=== PATIENT | male | born 1950 | race Hispanic/Latino ===

== ENCOUNTER 2016-11-09 11:05 | Day surgery (SDC) | payer MEDICARE ==
[~2016-11-09] VITALS: Ht 162.6 cm; Wt 72.0 kg
[~2016-11-09 11:05] MED LIST: 0.9% Sodium Chloride 1,000 ML IV PRN; AZIT500T5 PO; BENZ-12 PO; LIP40 PO; LISI-567 PO; METF500T4 PO; NPR500T PO; OMEP20CA11 PO; Sodium Chloride LOK Flush 10 mL Syringe IV PRN; fentaNYL-PF 50 mCg/mL 2 mL Inj IVPUSH PRN
[2016-11-09 12:00] VITALS: BP 137/81; PULSE 59; RESP 16; O2SAT 97
[2016-11-09 13:37] VITALS: BP 122/70; PULSE 69; RESP 14; O2SAT 95
--- NOTE | 2016-11-09 13:39 | PCM.ENDEGD ---
EGD Date of Service: November 09, 2016 Physician Keith Trinh MD Pre Procedure Diagnosis: Reflux Post Procedure Dx & Findings: Benign esophageal stricture diffuse gastritis Procedure Esophagogastroduodenoscopy PROCEDURE IN DETAIL: After proper sedation, Olympus video endoscope was inserted into patient's mouth and esophagus was successfully intubated. Scope introduced esophagus. Esophagus showed normal shiny whitish mucosa consistent with squamous cell component. Near the GE junction, there was a scarring consistent with benign esophageal stricture. The lumen was about 11 or 12 mm. We took a balloon dilator to 12 mm. We waited 30 seconds. No tear noted. We took the balloon and dilated to 13.5 mm. We waited 30 seconds. No tear noted. We then dilated up to 15 mm. We waited 30 seconds. Small tear noted. Blood noted. But bleeding stopped. Scope further advanced to the stomach. Stomach showed redness atrophy and mild edema consistent with diffuse gastritis of the entire stomach. Biopsies obtained both proximal and distal stomach. Cardia fundus body antrum pylorus were all visualized. Retroflexion was done. Stomach was easily inflated and deflatable using air. Scope further events to the distal duodenum. Duodenum revealed normal villous structures with normal appearing folds without any mass ulcer erosion. Impression Successful dilation of the esophagus to 15 mm. Diffuse gastropathy Recommendation Repeat EGD in 8 weeks to evaluate for Barclay's esophagus. It is unclear whether patient had Barclay's esophagus or not under the circumstances. Increase Prilosec to 20 mg twice a day. Presedation Assessment Risks and Benefits Informed consent was obtained from the patient after all risks and benefits including but not limited to drug reaction, infection, pain, bleeding, perforation, as well as alternatives were discussed. Patient monitoring Continuous pulse oximetry, cardiac monitoring, blood pressure monitoring, IV access, and oxygen at 2L per nasal cannula. Periprocedural Fentanyl: Fentanyl 100mcg Incrementally Midazolam: Midazolam 5mg Incrementally Complications There were no periprocedural complications identified. Post Procedure Plan Post Procedure Recommendations 1. Restrict activities today. 2. Resume normal activities in the morning. 3. Resume medications. 4. GERD behavioral modification: - Avoid fatty, acidic, spicy, large meals - Do not lie down after meals - Do not eat or drink anything for at least 2 1/2 hours before going to bed at night - Discontinue tobacco and alcohol - Decrease or avoid caffeine - Avoid chocolate and mints - Decrease weight - Avoid aspirin and non steroidal anti-inflammatory agents (NSAID) such as Aleve, Advil, Mobic, Naproxen, Ibuprofen, etc 5. Add proton pump inhibitor. Take 30 minutes before 1st meal of the day. 6. Patient informed of normal post procedure side effects as bloating, drowsiness, blood streaking in the stool 7. If gastric biopsy reveal H.pylori, continue with appropriate treatment 8. If small bowel biopsy reveals celiac, continue with appropriate treatment 9. Please don't hesitate to call me with any questions Keith Trinh MD November 09, 2016 13:39
[2016-11-09 13:47] VITALS: BP 133/75; PULSE 65; RESP 14; O2SAT 97
--- NOTE | 2016-11-11 11:15 | PATH ---
SURGICAL PATHOLOGY Attending Physician:Keith Trinh M.D. CASE STATUS: Signed Out PATIENT NAME: TRANG VALDEZ PID: [id number] : 1950 DATE COLLECTED:11/09/2016 00:00 SPECIMEN: Gastric, Biopsy CLINICAL HISTORY: 1). GASTRIC BIOPSY FINAL DIAGNOSIS: 1.GASTRIC BIOPSY: ANTRAL AND BODY-TYPE MUCOSA WITH NO DIAGNOSTIC ALTERATIONS. Negative for Helicobacter organisms. Negative for intestinal metaplasia. Negative for dysplasia and malignancy. ICD10 code R10.9 GROSS DESCRIPTION: The specimen is received in one formalin filled container labeled with the patient's name, sublabeled "gastric" and consists of 3 portions of tissue which aggregate to 0.3 x 0.3 x 0.2 CM. The specimen is entirely submitted in one cassette. 11/10/2016 [facility] MICRO DESCRIPTION: See diagnosis. ICD-9 CODES: CPT CODES: 1: 90706 Electronically Signed Out Joyce Gonsales MD [facility] [address], [place] [address] Technical component performed at [facility], [address] [place] [address] Ave[address], [address]
== END 2016-11-09 23:59 | disposition home or self-care (01) ==
LOC: END 11:05
PROVIDERS: ATTEND Internal Medicine
DX: K31.9 Disease of stomach and duodenum, unspecified (principal); K21.0 Gastro-esophageal reflux disease with esophagitis; K44.9 Diaphragmatic hernia without obstruction or gangrene; E78.5 Hyperlipidemia, unspecified; E11.9 Type 2 diabetes mellitus without complications; Z79.84 Long term (current) use of oral hypoglycemic drugs
CPT/HCPCS: 43239; 43249; 99153; G0500; J7030